=== PATIENT | male | born 1955 | race Caucasian/White ===

== ENCOUNTER → 2018-12-18 | Outpatient (CLI) | payer OTHER ==
--- NOTE | 2018-12-20 17:07 | PE ---
Nuclear medicine PET/CT HISTORY: Colorectal carcinoma subsequent Patient received 10.8 mCi F-18 intravenously in delayed scanning was performed from the skull base to the mid thighs. Localization and attenuation correction CT scan was performed. No comparisons Neck and chest: No suspicious hypermetabolic activity. There is no cervical, axillary, hilar, or medi astinal adenopathy. Coronary artery calcifications are present. There is no lung mass. Pleural or per icardial effusion. ABDOMEN: Spleen is enlarged. Large amount of retained fecal debris present within the colon. Retroper itoneal nodes are not enlarged. There is a calcification associated with the left kidney. There is a mass in the right hemipelvis measuring approximately 4.4 cm in AP dimension, some local colonic wall thickening is present. The left of the sigmoid colon there is an additional mass measuring approximat abimael 3 cm in size. Associated hypermetabolic uptake mass or adenopathy is evident. Prostatic calcifica tions are present. Low dense lesion within the left lobe liver shows no suspicious hypermetabolic upt kavon. Osseous structures show no suspicious hypermetabolic uptake. Facet arthropathy noted at the lower lum bar spine, there are degenerative disc changes. IMPRESSION: Soft tissue masses within the pelvis with associated hypermetabolic uptake, colonic wall thickening compatible with patient's history colorectal carcinoma. Splenomegaly. Coronary artery dise ase.
== END | disposition home or self-care (01) ==
LOC: RADPETMAIN 12:15
PROVIDERS: ATTEND Internal Medicine Hematology & Oncology
DX: C19 Malignant neoplasm of rectosigmoid junction (principal); I25.10 Atherosclerotic heart disease of native coronary artery without angina pectoris; R16.1 Splenomegaly, not elsewhere classified
CPT/HCPCS: 78815; A9552

== ENCOUNTER → 2019-03-24 | Outpatient (CLI) | payer OTHER ==
--- NOTE | 2019-03-24 15:41 | XR ---
EXAMINATION TYPE: XR knee complete bilateral DATE OF EXAM: 03/24/2019 CLINICAL HISTORY: Bilateral knee pain for 2 months. TECHNIQUE: Three views of the bilateral knees are obtained. COMPARISON: None. FINDINGS: There is no acute fracture/dislocation evident in either knee. There is defw-sx-aanvecwi m edial tibiofemoral compartment right knee more prominent on left knee with additional mild spurring r ight knee. Patellofemoral compartments bilaterally show mild to moderate narrowing and mild spurring fairly symmetric in appearance. Posterior vascular calcification left knee is noted. IMPRESSION: As above.
== END | disposition home or self-care (01) ==
LOC: RADXRMAIN 15:16
PROVIDERS: ATTEND Family Medicine
DX: M89.8X6 Other specified disorders of bone, lower leg (principal)

== ENCOUNTER → 2019-04-29 | Outpatient (CLI) | payer OTHER ==
--- NOTE | 2019-04-29 20:56 | MR ---
EXAMINATION TYPE: MR pelvis wo/w con DATE OF EXAM: 04/29/2019 COMPARISON: 12/18/2018 CT scan HISTORY: Malignant neoplasm of rectosigmoid junction CONTRAST: Standard multiplanar, multisequence MRI departmental protocol utilizing 7.5 mL intravenous Gadavist g adolinium contrast. FINDINGS: There is mixed signal irregular mass involving the right lateral wall of the rectum. This measures 2. 5 cm in diameter. There is slight enhancement of the wall of the mass. There is mild diffuse enhancem ent of the wall of the lower rectum. Bladder distends smoothly. There is no evidence of bladder mass. Sacral segments have normal alignment. There is no evidence of bony destructive process in the pelvi s. There is mild rectal wall thickening. There is no free fluid in the pelvis. Prostate is enlarged a nd measures 5.5 cm with multiple central areas of calcification bilaterally. IMPRESSION: 2.5 cm mass on the right lateral wall of the rectum consistent with residual tumor. This measures 4.[address] scan of 12/18/2018 and suggests a favorable treatment response. Diffuse wall thickening of the lower rectosigmoid colon in the pelvic floor consistent with edema and consistent with post radiation changes. Enlarged prostate with calcification unchanged.
== END | disposition home or self-care (01) ==
LOC: RADMRIMAIN 16:41
PROVIDERS: ATTEND Radiology Radiation Oncology
DX: C19 Malignant neoplasm of rectosigmoid junction (principal); Z92.3 Personal history of irradiation; Z87.891 Personal history of nicotine dependence
CPT/HCPCS: 72197; A9585

== ENCOUNTER → 2019-04-29 | Outpatient (CLI) | payer OTHER ==
--- NOTE | 2019-05-01 09:09 | CT ---
EXAMINATION TYPE: CT chest abdomen w con DATE OF EXAM: 04/29/2019 INDICATION: Rectosigmoid junction cancer. COMPARISON: Localization CT from the PET scan of 12/18/2018 CT DLP: 789.1 mGycm CONTRAST: Performed without Oral Contrast and with IV Contrast, patient injected with 100ml mL of Isovue 300. TECHNIQUE: Axial images at 5 mm thick sections. Reconstructed images in the coronal plane. Delayed images through the kidneys. FINDINGS: CT CHEST: Portion of the thyroid visualized is normal. No suspicious lung nodules or focal infiltrates are present. There appears to be some mild chronic st randing present. Some mild pleural thickening the right lower margin. Series 4 image 44. Couple of ar eas of pneumonitis change are present. These findings were present previously. No enlarged mediastinal or hilar adenopathy is evident. The ascending aorta diameter at the level of the main pulmonary artery is 3.0 cm. The main pulmonary artery diameter at the bifurcation is 2.[address] ABDOMEN: Liver: Normal Spleen: Upper limits of normal for size. Pancreas: Normal Adrenal glands: The adrenal glands are normal. Gallbladder: Normal Kidneys: No masses are evident. No hydronephrosis is present. No cysts are present. Delayed images were obtained through the kidneys, which remain unremarkable. Aorta: Vascular calcification is within the aorta. Inferior vena cava: Normal. Bowel: Study is without oral contrast limiting bowel evaluation. Fecal debris is within the descendin g colon. Osseous structures: No suspicious lytic or sclerotic lesions. Degenerative disc changes are in the lo wer lumbar spine IMPRESSIONS: 1. No suspicious changes to suggest metastatic disease.
== END | disposition home or self-care (01) ==
LOC: RADCTMAIN 16:32
PROVIDERS: ATTEND Radiology Radiation Oncology
DX: C19 Malignant neoplasm of rectosigmoid junction (principal); Z92.3 Personal history of irradiation; Z87.891 Personal history of nicotine dependence
CPT/HCPCS: 82565; 84520; 71260; 74160; 36415; Q9967

== ENCOUNTER → 2019-05-20 | Outpatient (CLI) | payer OTHER ==
--- NOTE | 2019-05-20 10:55 | XR ---
EXAMINATION TYPE: XR foot complete bilateral DATE OF EXAM: 05/20/2019 CLINICAL HISTORY: Bilateral metatarsalgia TECHNIQUE: Frontal, lateral, and oblique images of the bilateral feet are obtained. COMPARISON: None FINDINGS: There is no acute fracture/dislocation evident in either foot. Slight hallux valgus positi oning bilaterally, left slightly more prominent than right in the first metatarsal phalangeal joints Mild to moderate narrowing right foot first metatarsal phalangeal joint with mild spurring. Moderate to large size inferior calcaneal spurs bilaterally. Marked flexion in the toes is noted in both feet. Mild diffuse subcutaneous edema bilaterally. IMPRESSION: As above.
== END | disposition home or self-care (01) ==
LOC: RADXRMAIN 10:11
PROVIDERS: ATTEND Family Medicine
DX: M77.31 Calcaneal spur, right foot (principal); M77.32 Calcaneal spur, left foot; M20.12 Hallux valgus (acquired), left foot; M20.11 Hallux valgus (acquired), right foot; M21.272 Flexion deformity, left ankle and toes; M21.271 Flexion deformity, right ankle and toes; M25.871 Other specified joint disorders, right ankle and foot

== ENCOUNTER 2019-06-12 08:20 | Emergency (ER) | payer OTHER ==
[2019-06-12 08:42] VITALS: TEMP 99.3
--- NOTE | 2019-06-12 09:22 | ED ---
Male Urogenital HPI - General Chief complaint: Urogenital Stated complaint: uti Time Seen by Provider: 06/12/19 08:31 Source: patient, RN notes reviewed Mode of arrival: ambulatory Limitations: no limitations - History of Present Illness Initial comments: This is 63-year-old male presents emergency Department chief complaint of dysuria. Concern of the last 2 days. Patient does admit that he's had recent Griffith catheter. He states he had surgery on 05/22/2019 and which she had a colon resection, ileostomy. He did have an a Griffith placed at that time was removed couple days after in which she had urinary retention, replaced and removed 3 days ago. Patient states he has dysuria and hesitancy when urinating. He has been taken Flomax for last 1 week. He reports no fevers chills he has no increasing abdominal pain no flank pain. - Related Data Previous Rx's Medication Instructions Recorded Sulfamethox-Tmp 800-160Mg [Bactrim 1 each PO Q12HR #14 tab 06/12/19 Ds] Allergies Allergy/AdvReac Type Severity Reaction Status Date / Time Tetracyclines Allergy Unknown Verified 06/12/19 08:32 Childhood Review of Systems ROS Statement: Those systems with pertinent positive or pertinent negative responses have been documented in the HPI. ROS Other: All systems not noted in ROS Statement are negative. Past Medical History Additional Past Medical History / Comment(s): colon/rectal cancer History of Any Multi-Drug Resistant Organisms: None Reported Additional Past Surgical History / Comment(s): colon resection and ileostomy Past Psychological History: No Psychological Hx Reported Smoking Status: Never smoker Past Alcohol Use History: None Reported Past Drug Use History: None Reported General Exam Limitations: no limitations General appearance: alert, in no apparent distress Head exam: Present: atraumatic, normocephalic, normal inspection Eye exam: Present: normal appearance, PERRL, EOMI. Absent: scleral icterus, conjunctival injection, periorbital swelling Neck exam: Present: normal inspection, full ROM. Absent: tenderness, meningismus, lymphadenopathy Respiratory exam: Present: normal lung sounds bilaterally. Absent: respiratory distress, wheezes, rales, rhonchi, stridor Cardiovascular Exam: Present: regular rate, normal rhythm, normal heart sounds. Absent: systolic murmur, diastolic murmur, rubs, gallop, clicks GI/Abdominal exam: Present: soft, tenderness (Minimal), normal bowel sounds, other (Incision sites healing well no drainage or erythema). Absent: distended, guarding, rebound, rigid Course Vital Signs 06/12/19 08:32 Temperature 99.3 F Pulse Rate 87 Respiratory 18 Rate Blood Pressure 117/69 O2 Sat by Pulse 96 Oximetry Medical Decision Making - Medical Decision Making Urinalysis reviewed shows evidence of urinary tract infection. Patient given Rocephin emergency department we discharged on Bactrim. Patient bladder scan di d not reveal any retention. - Lab Data Lab Results 06/12/19 Range/Units 09:51 Urine Color Dark Brown Urine Appearance Turbid (Clear) Urine pH 5.5 (5.0-8.0) Urine Protein 3+ H (Negative) Urine Glucose (UA) Trace H (Negative) Urine Ketones Negative (Negative) Urine Blood Moderate H (Negative) Urine Nitrite Positive (Negative) Urine Bilirubin 1+ H (Negative) Urine Urobilinogen <2.0 (<2.0) mg/dL Ur Leukocyte Esterase Large H (Negative) Urine RBC 65 H (0-5) /hpf Ur Squamous Epith Cells 8 H (0-4) /hpf Urine Bacteria Few H (None) /hpf Hyaline Casts 71 H (0-2) /lpf Urine Mucus Many H (None) /hpf Disposition Clinical Impression: Urinary tract infection Disposition: HOME SELF-CARE Condition: Stable Instructions (If sedation given, give patient instructions): Urinary Tract Infection in Men (ED) Additional Instructions: Please return to the Emergency Department if symptoms worsen or any other concerns. Prescriptions: Sulfamethox-Tmp 800-160Mg [Bactrim Ds] 1 each PO Q12HR #14 tab Is patient prescribed a controlled substance at d/c from ED?: No Referrals: Adiel Razo Jr, [Primary Care Provider] - 1-2 days Time of Disposition: 10:22
[2019-06-12 10:14] LABS: Appearance,Urine Turbid (Clear); Bacteria,Urine Few /hpf; Bilirubin,Urine 1+ (Negative); Blood,Urine Moderate (Negative); Color,Urine Dark Brown; Glucose,Urine (UA) Trace (Negative); Hyaline Casts,Urine 71 /lpf (0-2); Ketones,Urine Negative (Negative); Leukocyte Esterase,Urine Large (Negative); Mucus,Urine Many /hpf; Nitrite,Urine Positive (Negative); PH, Urine 5.5 (5.0-8.0); Protein,Urine 3+ (Negative); RBC,Urine 65 /hpf (0-5); Squamous Epithelial Cell,Urine 8 /hpf (0-4); Urobilinogen,Urine <2.0 mg/dL (<2.0)
[2019-06-12] MEDS ORDERED: cefTRIAXone 1,000 MG VIAL (IM USE) IM STA (10:15)
[2019-06-12 10:19] LABS: Specific Gravity,Urine 1.027 (1.001-1.035)
[2019-06-12 11:10] VITALS: BP 118/74; PULSE 70; RESP 16
== END 2019-06-12 11:10 | disposition home or self-care (01) ==
LOC: EC 08:20
DX: N39.0 Urinary tract infection, site not specified (principal); Z88.1 Allergy status to other antibiotic agents; Z90.49 Acquired absence of other specified parts of digestive tract; Z85.038 Personal history of other malignant neoplasm of large intestine
CPT/HCPCS: 81001; 87086; 96372; 99283; J0696; 87077; 87186

== ENCOUNTER → 2019-07-04 | Outpatient (CLI) | payer OTHER ==
--- NOTE | 2019-07-04 16:20 | US ---
EXAMINATION TYPE: US kidneys/renal and bladder DATE OF EXAM: 07/04/2019 COMPARISON: CT chest and abdomen April 29, 2019 CLINICAL HISTORY: N13.39 Other hydronephrosis. EXAM MEASUREMENTS: Right Kidney: 11.5 x 4.8 x 5.2 cm Left Kidney: 12.7 x 5.3 x 4.9 cm Right Kidney: No hydronephrosis or masses seen Left Kidney: echogenic foci, probable stone measuring Bladder: wnl There is no evidence for hydronephrosis at this point in time. Corresponding to CT there is a 6 mm hy perechoic focus midpole level consistent with nonobstructing calculus. No masses are identified on i mages saved. The urinary bladder is satisfactorily distended. Bilateral ureteral jets are seen. Inc idental scanning liver there is a heterogeneous hyperechoic appearance which correlates with CT could reflect product of diffuse fatty infiltration and/or underlying hepatocellular disease. Correlate cl inically. IMPRESSION: Redemonstration of nonobstructing calculus more accurately measuring [address] No hydro nephrosis is seen bilaterally.
== END | disposition home or self-care (01) ==
LOC: RADUSWWP 15:43
PROVIDERS: ATTEND Surgery
DX: N20.0 Calculus of kidney (principal)
CPT/HCPCS: 76770

== ENCOUNTER 2019-08-13 21:45 | Emergency (ER) | payer OTHER ==
--- NOTE | 2019-08-13 22:43 | ED ---
Male Urogenital HPI - General Chief complaint: Urogenital Stated complaint: Urogenital Time Seen by Provider: 08/13/19 21:58 Source: patient Mode of arrival: ambulatory Limitations: no limitations - History of Present Illness Initial comments: Patient is 63-year-old male presenting to emergency Department with complaints of dysuria that started today. Patient states he has a history of UTIs for the past couple months. Patient had recent surgery to remove colon cancer. He currently has an ileostomy bag. Patient states his last round of antibiotics he ended approximately one week ago and he was on Bactrim. He started noticing dysuria, frequency and urgency that started this morning. He denies any fever, chills, nausea, vomiting, abdominal pain. He has no other complaints at this time. Upon arrival to ER, vital signs are stable. - Related Data Previous Rx's Medication Instructions Recorded Sulfamethox-Tmp 800-160Mg [Bactrim 1 each PO Q12HR #14 tab 06/12/19 Ds] Ciprofloxacin HCl [Cipro] 500 mg PO BID 7 Days #14 tab 08/13/19 Allergies Allergy/AdvReac Type Severity Reaction Status Date / Time Tetracyclines Allergy Unknown Verified 08/13/19 21:50 Childhood Review of Systems ROS Statement: Those systems with pertinent positive or pertinent negative responses have been documented in the HPI. ROS Other: All systems not noted in ROS Statement are negative. Past Medical History Additional Past Medical History / Comment(s): colon/rectal cancer History of Any Multi-Drug Resistant Organisms: None Reported Additional Past Surgical History / Comment(s): colon resection and ileostomy Past Psychological History: No Psychological Hx Reported Smoking Status: Never smoker Past Alcohol Use History: None Reported Past Drug Use History: None Reported General Exam - General Exam Comments Initial Comments: GENERAL: Well-appearing, well-nourished and in no acute distress. HEAD: Atraumatic, normocephalic. EYES: Pupils equal round and reactive to light, extraocular movements intact, sclera anicteric, conjunctiva are normal. ENT: TMs normal, nares patent, oropharynx clear without exudates. Moist mucous membranes. NECK: Normal range of motion, supple without lymphadenopathy or JVD. LUNGS: Breath sounds clear to auscultation bilaterally and equal. No wheezes rales or rhonchi. HEART: Regular rate and rhythm without murmurs, rubs or gallops. ABDOMEN: Soft, nontender, normoactive bowel sounds. No guarding, no rebound. No masses appreciated. Ileostomy bag present : Deferred EXTREMITIES: Normal range of motion, no pitting or edema. No clubbing or cyanosis. NEUROLOGICAL: Normal speech, normal gait. PSYCH: Normal mood, normal affect. SKIN: Warm, Dry, normal turgor, no rashes or lesions noted. Limitations: no limitations Course Vital Signs 08/13/19 08/13/19 08/13/19 21:47 23:18 23:27 Temperature 98.7 F 100.2 F H 100 F H Pulse Rate 86 80 Respiratory 16 18 Rate Blood Pressure 129/85 126/74 O2 Sat by Pulse 97 100 Oximetry Medical Decision Making - Medical Decision Making Patient is a 61-year-old male presenting with dysuria for one day. He's had a history of UTIs, 2 in the past 2 months. He was recently treated with Bactrim. UA shows 4+ glucose, WBC clumps and high amount of bacteria. Urine will be cultured and is pending at this time. Upon discussion of the urine, patient noted that he is currently receiving chemo. I recommended checking a CBC however patient refused at this time, he does not want blood work. [facility] and urged to follow up with his PCP on Thursday. Patient is in agreement with this plan of care. Strict return parameters were discussed with the patient and he verbalized understanding. Case discussed with Dr. Herbert. - Lab Data Lab Results 08/13/19 Range/Units 22:06 Urine Color Yellow Urine Appearance Cloudy (Clear) Urine pH 5.5 (5.0-8.0) Ur Specific [place] 1.029 (1.001-1.035) Urine Protein 1+ H (Negative) Urine Glucose (UA) 4+ H (Negative) Urine Ketones 1+ H (Negative) Urine Blood Moderate H (Negative) Urine Nitrite Negative (Negative) Urine Bilirubin Negative (Negative) Urine Urobilinogen <2.0 (<2.0) mg/dL Ur Leukocyte Esterase Large H (Negative) Urine RBC 13 H (0-5) /hpf Urine WBC >182 H (0-5) /hpf Urine WBC Clumps Few H (None) /hpf Urine Bacteria Moderate H (None) /hpf Urine Mucus Few H (None) /hpf Disposition Clinical Impression: UTI (urinary tract infection) Disposition: HOME SELF-CARE Condition: Stable Instructions (If sedation given, give patient instructions): Urinary Tract Infection in Men (ED) Additional Instructions: Please return to the Emergency Department if symptoms worsen or any other concerns. Follow-up with PCP on Thursday as discussed. Prescriptions: Ciprofloxacin HCl [Cipro] 500 mg PO BID 7 Days #14 tab Is patient prescribed a controlled substance at d/c from ED?: No Referrals: Adiel Razo Jr, DO [Primary Care Provider] - 1-2 days
[2019-08-13 22:55] LABS: Appearance,Urine Cloudy (Clear); Bacteria,Urine Moderate /hpf; Bilirubin,Urine Negative (Negative); Blood,Urine Moderate (Negative); Color,Urine Yellow; Glucose,Urine (UA) 4+ (Negative); Ketones,Urine 1+ (Negative); Leukocyte Esterase,Urine Large (Negative); Mucus,Urine Few /hpf; Nitrite,Urine Negative (Negative); PH, Urine 5.5 (5.0-8.0); Protein,Urine 1+ (Negative); RBC,Urine 13 /hpf (0-5); Specific Gravity,Urine 1.029 (1.001-1.035); Urobilinogen,Urine <2.0 mg/dL (<2.0); WBC,Urine >182 /hpf (0-5)
[2019-08-13] MEDS ORDERED: CIPROFLOXACIN HCL 500 MG TAB PO STA (23:18)
[2019-08-13 23:29] VITALS: BP 126/74; PULSE 80; RESP 18; TEMP 100
== END 2019-08-13 23:54 | disposition home or self-care (01) ==
LOC: EC 21:45
DX: N39.0 Urinary tract infection, site not specified (principal); Z88.1 Allergy status to other antibiotic agents; Z93.2 Ileostomy status; Z85.038 Personal history of other malignant neoplasm of large intestine
CPT/HCPCS: 81001; 87077; 87086; 87186; 99283

== ENCOUNTER → 2019-12-27 | Outpatient (CLI) | payer OTHER ==
[2019-12-27 12:24] LABS: African American GFR (CKD) >90 (>60 ml/min/1.73 sqM); Blood Urea Nitrogen 19 mg/dL (9-20); Non-African American GFR(CKD) >90 (>60 ml/min/1.73 sqM)
--- NOTE | 2019-12-27 13:33 | CT ---
EXAMINATION TYPE: CT abdomen pelvis w con DATE OF EXAM: 12/27/2019 COMPARISON: HISTORY: Follow up colon cancer CT DLP: 784.9 mGycm Automated exposure control for dose reduction was used. TECHNIQUE: Helical acquisition of images was performed from the lung bases through the pelvis. CONTRAST: Performed with Oral Contrast and with IV Contrast, patient injected with 100 mL of Isovue 300. FINDINGS: LUNG BASES: Multifocal pleural parenchymal scarring and scattered areas of subsegmental atelectasis. Left hemidiaphragm elevation noted.14 LIVER/GB: There are 2 hepatic lesions that are subcentimeter and too small to accurately characterize retrospectively unchanged from the prior of 04/29/2019. The liver is diffusely hypoattenuated althoug h does not yet meet criteria for hepatic steatosis. Mild dilatation of the main portal vein. Punctate calculus in the gallbladder fundus. PANCREAS: No significant abnormality is seen. SPLEEN: Splenomegaly is seen as the elongated spleen measures 17.0 cm in longitudinal dimension. Suzan splenic and gastrohepatic varices are seen. Main portal vein is mildly dilated measuring 1.7 cm. Mese nteric varices also seen. ADRENALS: No new nodularity or thickening. KIDNEYS: Nonobstructing left renal calculus measures 6 mm. No hydronephrosis of either kidney. Kidney s enhance symmetrically. FREE AIR: No free air is visualized. ADENOPATHY: No greater than 1 cm short axis lymph nodes in the abdomen or pelvis. Shotty nonenlarged periaortic lymph nodes. OSSEOUS STRUCTURES: Sclerotic focus of the anterior cortex of L5 is similar to the prior of 9 and therefore possibly bone island. Mild multilevel degenerative change of the spine. BOWEL: Rectosigmoid anastomotic site demonstrates no proximal bowel dilatation nor anastomotic stric ture. Overall no dilated large or small bowel. Ileostomy seen that appears patent with contrast into the ostomy pouch. Small amount of mesenteric fat is seen within the ostomy. No bowel containing lor tomal hernia. OTHER: Presacral edema/soft tissue thickening measures up to 2.1 cm and was not imaged on the prior o f 04/29/2019. On the PET/CT of 12/18/2018 this was not present. Incomplete distention of the urinary bladder. Diffusely heterogenous prostate gland. IMPRESSION: 1. New presacral edema and/or soft tissue thickening that could relate to posttreatment change. This is seen directly posterior to the rectosigmoid anastomotic site measuring up to 2.1 cm in greatest th ickness. 2. Findings of portal venous hypertension with mildly dilated main portal vein, gastric hepatic varic es, mesenteric varices and splenic varices. 3. Stable too small to accurately characterize subcentimeter hepatic lesions (2 in number).
== END | disposition home or self-care (01) ==
LOC: RADCTMAIN 10:53
PROVIDERS: ATTEND Internal Medicine Hematology & Oncology
DX: K76.6 Portal hypertension (principal); I86.8 Varicose veins of other specified sites; K76.9 Liver disease, unspecified; Z88.1 Allergy status to other antibiotic agents
CPT/HCPCS: 82565; 84520; 74177; 36415; Q9967

== ENCOUNTER → 2020-03-29 | Outpatient (CLI) | payer OTHER ==
--- NOTE | 2020-03-30 07:23 | MR ---
EXAMINATION TYPE: MR knee RT wo con DATE OF EXAM: 03/29/2020 COMPARISON: Outside right knee x-ray February 28, 2020. HISTORY: Right Knee Pain per order. Inner pain for years per patient. Recent twisting injury. TECHNIQUE: Multiplanar, multisequence images of the knee is performed without IV contrast. FINDINGS: MEDIAL MENISCUS: Anterior horn is intact without tear. Posterior horn is truncated with abnormal incr eased signal, fraying along the peripheral margins is present. Findings consistent with full thicknes s tear. LATERAL MENISCUS: Anterior and posterior horns are intact without tear. CRUCIATE LIGAMENTS: The posterior cruciate ligament is intact and unremarkable. Anterior cruciate lig ament visualized consistent with full-thickness tear. COLLATERAL LIGAMENTS: The medial collateral ligament and lateral collateral ligament complex are inta ct. Medial bowing medial collateral ligament noted. No suspicious surrounding signal. EXTENSOR MECHANISM: Visualized quadriceps and patellar tendons are intact. EFFUSION: Moderate to large size suprapatellar joint effusion. POPLITEAL CYST: No popliteal/miner cyst. TRICOMPARTMENT SPACES: Mild narrowing and spurring medial and lateral tibiofemoral compartments. Mild to moderate narrowing patellofemoral compartment. CARTILAGE: Some chondromalacia patella is present with thinning of articular cartilage along superior aspect of the posterior patellar pole. BONE MARROW SIGNAL: No focal abnormal marrow signal is appreciated. OTHER: No additional significant abnormality is appreciated. IMPRESSION: 1. Complete ACL tear. Finding presumed chronic without abnormal osseous edema or recent trauma. 2. Full-thickness tear posterior horn of the medial meniscus. 3. Moderate to large suprapatellar joint effusion. 4. Mild to moderate tricompartment degenerative changes as detailed above.
== END | disposition home or self-care (01) ==
LOC: RADMRIMAIN 15:35
PROVIDERS: ATTEND Orthopaedic Surgery
DX: S83.241A Other tear of medial meniscus, current injury, right knee, initial encounter (principal); S83.511A Sprain of anterior cruciate ligament of right knee, initial encounter; M17.11 Unilateral primary osteoarthritis, right knee

== ENCOUNTER 2020-05-19 21:15 | Emergency (ER) | payer OTHER ==
[2020-05-19] MEDS ORDERED: valACYclovir HCL 1,000 MG TABLET PO STA (22:07)
--- NOTE | 2020-05-19 22:07 | ED ---
Skin/Abscess/FB HPI - General Chief complaint: Skin/Abscess/Foreign Body Stated complaint: rash Time Seen by Provider: 05/19/20 21:25 Source: patient Mode of arrival: ambulatory Limitations: no limitations - History of Present Illness Initial comments: Patient is a 64-year-old male presenting to the emergency Department with complaints of a rash that he noticed yesterday. Patient describes the rash as very painful, uncomfortable and burning. He states he noticed it start on the left side of his upper butt cheek and extends down the left side and wraps underneath and is also having some red spots on the left side of his scrotum, groin area. He states he has had chickenpox as a child. He denies having shingles in the past. He denies any fever, chills. He denies any sores her injuries to this area. He has no further complaints at this time. - Related Data Previous Rx's Medication Instructions Recorded Sulfamethox-Tmp 800-160Mg [Bactrim 1 each PO Q12HR #14 tab 06/12/19 Ds] Ciprofloxacin HCl [Cipro] 500 mg PO BID 7 Days #14 tab 08/13/19 Cephalexin [Keflex] 500 mg PO BID 5 Days #10 cap 05/19/20 valACYclovir HCL [Valtrex] 1,000 mg PO Q8HR 7 Days #21 tab 05/19/20 Allergies Allergy/AdvReac Type Severity Reaction Status Date / Time Tetracyclines Allergy Unknown Verified 05/19/20 21:24 Childhood Review of Systems ROS Statement: Those systems with pertinent positive or pertinent negative responses have been documented in the HPI. ROS Other: All systems not noted in ROS Statement are negative. Past Medical History Additional Past Medical History / Comment(s): colon/rectal cancer History of Any Multi-Drug Resistant Organisms: None Reported Additional Past Surgical History / Comment(s): colon resection and ileostomy Past Psychological History: No Psychological Hx Reported Smoking Status: Never smoker Past Alcohol Use History: None Reported Past Drug Use History: None Reported General Exam - General Exam Comments Initial Comments: GENERAL: Patient is well-developed and well-nourished. Patient is nontoxic and in no acute distress. HEAD: Atraumatic, normocephalic. EYES: Pupils equal round and reactive to light, extraocular movements intact, sclera anicteric, conjunctiva are normal. Eyelids were unremarkable. ENT: TMs normal, nares patent, oropharynx clear without exudates. Moist mucous membranes. NECK: Normal range of motion, supple without lymphadenopathy or JVD. LUNGS: Unlabored respirations. Breath sounds clear to auscultation bilaterally and equal. No wheezes rales or rhonchi. HEART: Regular rate and rhythm without murmurs, rubs or gallops. ABDOMEN: Soft, nontender, normoactive bowel sounds. No guarding, no rebound. No masses appreciated. : Deferred MUSCULOSKELETAL: Normal extremities with adequate strength and normal range of motion, no pitting or edema. No clubbing or cyanosis. NEUROLOGICAL: Patient is alert and oriented x 3. Motor and sensory are also intact. Normal speech, normal gait. PSYCH: Normal mood, normal affect. SKIN: Warm, Dry, normal turgor. Patient has an erythematous blister-type rash extending from the left upper glut trending down which wraps around to the left scrotum, following the S2 dermatome on the left side, this rash is consistent with shingles virus. Limitations: no limitations Course Vital Signs 05/19/20 21:21 Temperature 99.0 F Pulse Rate 89 Respiratory 20 Rate Blood Pressure 157/83 O2 Sat by Pulse 99 Oximetry Medical Decision Making - Medical Decision Making Patient is a 64-year-old male presenting with what looks clinically as shingles of the S2 dermatome on the left side that mostly started yesterday. I did offer patient pain control however he refused at this time. I will start patient on Valtrex. He can follow up with his PCP for the shingles vaccine. He is in agreement with this plan of care. He is stable for discharge. Return parameters were discussed with the patient he verbalizes understanding. Case discussed with Dr. Lopez. Disposition Clinical Impression: Shingles rash Disposition: HOME SELF-CARE Condition: Stable Instructions (If sedation given, give patient instructions): Shingles (ED) Additional Instructions: Please return to the Emergency Department if symptoms worsen or any other concerns. Your rash is consistent with shingles virus. Recommended taking medication as prescribed. Follow-up with PCP regarding shingles vaccine. Prescriptions: Cephalexin [Keflex] 500 mg PO BID 5 Days #10 cap valACYclovir HCL [Valtrex] 1,000 mg PO Q8HR 7 Days #21 tab Is patient prescribed a controlled substance at d/c from ED?: No Referrals: Adiel Razo Jr, [Primary Care Provider] - 1-2 days
[2020-05-19 22:57] VITALS: BP 139/82; PULSE 86; RESP 18; TEMP 98.6
== END 2020-05-19 22:53 | disposition home or self-care (01) ==
LOC: EC 21:15
DX: B02.9 Zoster without complications (principal); Z88.1 Allergy status to other antibiotic agents; Z85.038 Personal history of other malignant neoplasm of large intestine
CPT/HCPCS: 99282

== ENCOUNTER 2020-10-06 23:35 | Emergency (ER) | payer OTHER ==
[2020-10-06 23:41] VITALS: PULSE 71
--- NOTE | 2020-10-07 00:03 | ED ---
Male Urogenital HPI - General Chief complaint: Urogenital Stated complaint: Urogenital Time Seen by Provider: 10/07/20 00:02 Source: patient, RN notes reviewed, old records reviewed Mode of arrival: ambulatory Limitations: no limitations - History of Present Illness Initial comments: This is a 64-year-old male DF for evaluation patient Dese for evaluation of severe dysuria. Patient had cystoscopy scope for evaluation of headache symptoms are related to recent hospitalization. Patient states he's had severe burning with severe pain with urination throughout the day and is currently making the night. Patient denying any fevers or abdominal pain. MD Complaint: dysuria -: hour(s) Location: penis Severity: moderate Severity scale (1-10): 7 Quality: burning Consistency: constant Improves with: none Worsens with: urination recent surgery Reports: dysuria - Related Data Previous Rx's Medication Instructions Recorded Sulfamethox-Tmp 800-160Mg [Bactrim 1 each PO Q12HR #14 tab 06/12/19 Ds] Ciprofloxacin HCl [Cipro] 500 mg PO BID 7 Days #14 tab 08/13/19 Cephalexin [Keflex] 500 mg PO BID 5 Days #10 cap 05/19/20 valACYclovir HCL [Valtrex] 1,000 mg PO Q8HR 7 Days #21 tab 05/19/20 Allergies Allergy/AdvReac Type Severity Reaction Status Date / Time Tetracyclines Allergy Unknown Verified 10/06/20 23:37 Childhood Review of Systems ROS Statement: Those systems with pertinent positive or pertinent negative responses have been documented in the HPI. ROS Other: All systems not noted in ROS Statement are negative. Past Medical History Past Medical History: Cancer, Prostate Disorder Additional Past Medical History / Comment(s): colon/rectal cancer , TB 30 years ago, Chemo History of Any Multi-Drug Resistant Organisms: None Reported Past Surgical History: Bowel Resection Additional Past Surgical History / Comment(s): colon resection and ileostomy Past Psychological History: No Psychological Hx Reported Smoking Status: Never smoker Past Alcohol Use History: None Reported Past Drug Use History: None Reported General Exam Limitations: no limitations General appearance: alert, in no apparent distress Head exam: Present: atraumatic, normocephalic, normal inspection Eye exam: Present: normal appearance, PERRL, EOMI. Absent: scleral icterus, conjunctival injection, periorbital swelling ENT exam: Present: normal exam, mucous membranes moist Neck exam: Present: normal inspection. Absent: tenderness, meningismus, lymphadenopathy Respiratory exam: Present: normal lung sounds bilaterally. Absent: respiratory distress, wheezes, rales, rhonchi, stridor Cardiovascular Exam: Present: regular rate, normal rhythm, normal heart sounds. Absent: systolic murmur, diastolic murmur, rubs, gallop, clicks GI/Abdominal exam: Present: soft, normal bowel sounds. Absent: distended, tenderness, guarding, rebound, rigid Extremities exam: Present: normal inspection, full ROM, normal capillary refill. Absent: tenderness, pedal edema, joint swelling, calf tenderness Back exam: Present: normal inspection Neurological exam: Present: alert, oriented X3, CN II-XII intact Psychiatric exam: Present: normal affect, normal mood Skin exam: Present: warm, dry, intact, normal color. Absent: rash Course Vital Signs 10/06/20 10/07/20 23:37 00:29 Temperature 98.4 F Pulse Rate 71 Respiratory 16 16 Rate Blood Pressure 154/90 O2 Sat by Pulse 96 Oximetry - Reevaluation(s) Reevaluation #1: 10/07/20 02:25 Medical record is reviewed Reevaluation #2: 10/07/20 02:25 Patient symptoms are improved here in the ER Reevaluation #3: 10/07/20 02:25 Patient informed results and can be discharged home Medical Decision Making - Medical Decision Making 61 female DF for evaluation patient has iatrogenic urinary tract infection. Patient be placed on antibiotics can be discharged home - Lab Data Lab Results 10/07/20 Range/Units 00:28 Urine Color Yellow Urine Appearance Cloudy (Clear) Urine pH 5.5 (5.0-8.0) Ur Specific [place] 1.027 (1.001-1.035) Urine Protein Trace H (Negative) Urine Glucose (UA) 4+ H (Negative) Urine Ketones Negative (Negative) Urine Blood Negative (Negative) Urine Nitrite Negative (Negative) Urine Bilirubin Negative (Negative) Urine Urobilinogen <2.0 (<2.0) mg/dL Ur Leukocyte Esterase Moderate H (Negative) Urine RBC 2 (0-5) /hpf Urine WBC 91 H (0-5) /hpf Urine Bacteria Rare H (None) /hpf Urine Mucus Few H (None) /hpf Disposition Clinical Impression: Urinary tract infection Disposition: HOME SELF-CARE Condition: Good Instructions (If sedation given, give patient instructions): Urinary Tract Infection in Men (ED) Is patient prescribed a controlled substance at d/c from ED?: No Referrals: Adiel Razo Jr, DO [Primary Care Provider] - 1-2 days
[2020-10-07 01:35] LABS: Appearance,Urine Cloudy (Clear); Bacteria,Urine Rare /hpf; Bilirubin,Urine Negative (Negative); Blood,Urine Negative (Negative); Color,Urine Yellow; Glucose,Urine (UA) 4+ (Negative); Ketones,Urine Negative (Negative); Leukocyte Esterase,Urine Moderate (Negative); Mucus,Urine Few /hpf; Nitrite,Urine Negative (Negative); PH, Urine 5.5 (5.0-8.0); Protein,Urine Trace (Negative); RBC,Urine 2 /hpf (0-5); Specific Gravity,Urine 1.027 (1.001-1.035); Urobilinogen,Urine <2.0 mg/dL (<2.0); WBC,Urine 91 /hpf (0-5)
[2020-10-07] MEDS ORDERED: AMOXIC-POT CLAV 875MG STARTER PACK 2 TAB BTL PO STA (02:23)
[2020-10-07] MEDS ORDERED: AMOXIC-POT CLAV 875-125MG 1 EACH TAB PO STA (02:23)
[2020-10-07] MEDS ORDERED: PHENAZOPYRIDINE 200 MG TAB PO ONE (02:30)
[2020-10-07 02:38] VITALS: BP 116/81; RESP 20; TEMP 98.1
== END 2020-10-07 02:55 | disposition home or self-care (01) ==
LOC: EC 23:35
DX: N39.0 Urinary tract infection, site not specified (principal); Z85.038 Personal history of other malignant neoplasm of large intestine
CPT/HCPCS: 81001; 87077; 87086; 87186; 99283

== ENCOUNTER → 2020-12-03 | Outpatient (CLI) | payer OTHER ==
[2020-12-03 09:43] LABS: African American GFR (CKD) >90 (>60 ml/min/1.73 sqM); Blood Urea Nitrogen 29 mg/dL (9-20); Non-African American GFR(CKD) 85 (>60 ml/min/1.73 sqM)
--- NOTE | 2020-12-03 12:44 | CT ---
EXAMINATION TYPE: CT abdomen pelvis w con DATE OF EXAM: 12/03/2020 COMPARISON: CT abdomen and pelvis December 27, 2019 and older studies. PET/CT December 18, 2018. HISTORY: follow up to rectosigmoid CA CT DLP: 849.6 mGycm, Automated Exposure Control for Dose Reduction was Utilized. CONTRAST: CT scan of the abdomen and pelvis is performed with oral and with IV Contrast, patient injected with 100 mL of Isovue 300. FINDINGS: LUNG BASES: Mild to moderate posterior bibasilar linear scarring and/or atelectasis. Stable elevated left hemidiaphragm. LIVER/GB: Subcentimeter hypodense lesions in liver are less well seen on current study. No new or en larging hypodense lesions. PANCREAS: No significant abnormality is seen. SPLEEN: Persistent splenomegaly at 17.4 cm long axis axial image 13. ADRENALS: No significant abnormality is seen. KIDNEYS: Stable nonobstructing 4 to 5 mm left renal calculus coronal image 60. No hydronephrosis or o bstructing renal calculi bilaterally. Improved distention of bladder with mild right-sided wall thick ening remaining present. BOWEL: Oral contrast reaches level of the terminal ileum making evaluation of distal bowel slightly s uboptimal. No suspicious small or large bowel dilatation. Surgical sutures from prior resection sigmo id rectal colon coronal image 77 redemonstrated. Persistent abnormal soft tissue in the presacral spa ce axial images 64 through 75. No increased thickening at these levels. No new bony destruction. No a djacent new adenopathy clearly seen. Findings favor posttreatment change. PROSTATE/SEMINAL VESICLES: Central calcifications in the nonenlarged prostate gland. LYMPH NODES: No new greater than 1cm abdominal or pelvic lymph nodes are appreciated. OSSEOUS STRUCTURES: Stable moderate disc space narrowing and vacuum disc phenomenon L4-L5 level. Stab le nonspecific sclerotic focus L5 vertebral coronal image 56 favored benign. [id number] axial j oint space loss and spurring of both hips. OTHER: No significant additional abnormality is seen. IMPRESSION: Stable postsurgical and posttreatment changes, no new or enlarging mass or adenopathy bj ntified to suggest neoplastic recurrence.
== END | disposition home or self-care (01) ==
LOC: RADCTMAIN 08:53
PROVIDERS: ATTEND Internal Medicine Hematology & Oncology
DX: C19 Malignant neoplasm of rectosigmoid junction (principal)
CPT/HCPCS: 82565; 84520; 74177; 36415; Q9967

== ENCOUNTER → 2020-12-07 | Outpatient (CLI) | payer OTHER ==
--- NOTE | 2020-12-07 11:21 | XR ---
EXAMINATION TYPE: XR hand complete LT DATE OF EXAM: 12/07/2020 CLINICAL HISTORY: Pain and lump TECHNIQUE: Frontal, lateral and oblique images of the left hand are obtained. COMPARISON: None. FINDINGS: There is no acute fracture/dislocation evident in the left hand. Slight ulnar variance. Mi ld to moderate narrowing throughout the phalanges including MCP joints. Mild multilevel spurring. Ove rlying soft tissue appears unremarkable. No bony destruction. IMPRESSION: As above.
--- NOTE | 2020-12-07 11:22 | XR ---
EXAMINATION TYPE: XR Hip Complete RT DATE OF EXAM: 12/07/2020 CLINICAL HISTORY: Pain after fall injury. TECHNIQUE: AP and frogleg views of the right hip are obtained. COMPARISON: None. FINDINGS: There is no acute fracture/dislocation evident in the right hip. Mild axial joint space lo ss with mild to moderate acetabular spurring. The overlying soft tissue appears unremarkable. IMPRESSION: There is no acute fracture or dislocation in the right hip.
== END | disposition home or self-care (01) ==
LOC: RADXRMAIN 10:35
PROVIDERS: ATTEND Internal Medicine Hematology & Oncology
DX: M19.042 Primary osteoarthritis, left hand (principal); M77.8 Other enthesopathies, not elsewhere classified; M25.551 Pain in right hip
CPT/HCPCS: 73502

== ENCOUNTER 2021-06-11 13:50 | Emergency (ER) | payer OTHER ==
--- NOTE | 2021-06-11 16:34 | XR ---
EXAMINATION TYPE: XR KUB DATE OF EXAM: 06/11/2021 Comparison: None Clinical History: 65-year-old male right lower quadrant pain, flank, abdominal pain Findings: Lung bases are clear. No evidence for free intraperitoneal air. Some scattered colonic air-fluid levels especially in the right hemicolon. Mild stool. Possible 3 mm left renal calculus. No dilated small bowel or differential air-fluid levels. Central prosthetic calc ifications. Mild degenerative change of the hips. Impression: A few air-fluid levels in the right hemicolon suggesting liquid stool that could relate to an ileus o r enteritis. No evidence for free air or bowel obstruction.
[2021-06-11 17:19] LABS: ALT 27 U/L (4-49); AST 30 U/L (17-59); African American GFR (CKD) >90 (>60 ml/min/1.73 sqM); Albumin 4.4 g/dL (3.5-5.0); Alkaline Phosphatase 63 U/L (38-126); Anion Gap 7 mmol/L; Blood Urea Nitrogen 20 mg/dL (9-20); Calcium 9.3 mg/dL (8.4-10.2); Carbon Dioxide 25 mmol/L (22-30); Chloride 104 mmol/L (98-107); Glucose 155 mg/dL (74-99); Magnesium 2.1 mg/dL (1.6-2.3); Non-African American GFR(CKD) >90 (>60 ml/min/1.73 sqM); Potassium 4.3 mmol/L (3.5-5.1); Sodium 136 mmol/L (137-145); Total Bilirubin 0.9 mg/dL (0.2-1.3); Total Protein 6.9 g/dL (6.3-8.2)
--- NOTE | 2021-06-11 17:24 | ED ---
Abdominal Pain HPI - General Chief Complaint: Abdominal Pain Stated Complaint: RUQ Pain Time Seen by Provider: 06/11/21 16:30 Source: patient, RN notes reviewed, old records reviewed Mode of arrival: ambulatory Limitations: no limitations - History of Present Illness Initial Comments: Patient is a 65-year-old male with history of colon cancer, currently in remission, presenting to the emergency Department with complaints of some right sided abdominal pain that started about 12:00 today. He states it was very sharp, intermittent. States upon arrival to the ER, his pain has seemed to go away. He does have history of kidney stones however he states it was not that intense. He denies any abdominal pain right now, no nausea or vomiting, no fevers or chills. He states his bowel movements have been regular for him, no dysuria, no hematuria. He has had history of colon resection, no other abdominal surgeries. Patient denies any rashes to the skin. He has had shingles in the past, this feels different. Patient states he also been having intermittent numbness to the fingertips bilaterally, he states isn't going on for months. He is not sure if this is coming from his neck or something else. He denies any history of electrolyte imbalances He has no further complaints. His vital signs are stable upon arrival. - Related Data Home Medications Medication Instructions Recorded Confirmed Ciprofloxacin HCl 500 mg PO BID 06/11/21 06/11/21 Insulin Glargine,Hum.rec.anlog 25 unit SQ HS 06/11/21 06/11/21 [Lantus Solostar Pen] Allergies Allergy/AdvReac Type Severity Reaction Status Date / Time Tetracyclines Allergy Unknown Verified 10/06/20 23:37 Childhood Review of Systems ROS Statement: Those systems with pertinent positive or pertinent negative responses have been documented in the HPI. ROS Other: All systems not noted in ROS Statement are negative. Past Medical History Past Medical History: Cancer, Prostate Disorder Additional Past Medical History / Comment(s): colon/rectal cancer History of Any Multi-Drug Resistant Organisms: None Reported Past Surgical History: Bowel Resection Additional Past Surgical History / Comment(s): colon resection and ileostomy Past Psychological History: No Psychological Hx Reported Smoking Status: Never smoker Past Alcohol Use History: None Reported Past Drug Use History: None Reported General Exam - General Exam Comments Initial Comments: GENERAL: Patient is well-developed and well-nourished. Patient is nontoxic and in no acute distress. HEAD: Atraumatic, normocephalic. EYES: Pupils equal round and reactive to light, extraocular movements intact, sclera anicteric, conjunctiva are normal. Eyelids were unremarkable. ENT: Nares patent, oropharynx clear without exudates. Moist mucous membranes. NECK: Normal range of motion, supple without lymphadenopathy or JVD. LUNGS: Unlabored respirations. Breath sounds clear to auscultation bilaterally and equal. No wheezes rales or rhonchi. HEART: Regular rate and rhythm without murmurs, rubs or gallops. ABDOMEN: Soft, nontender, normoactive bowel sounds. No guarding, no rebound. No masses appreciated. : Deferred MUSCULOSKELETAL: Normal extremities with adequate strength and normal range of motion, no pitting or edema. No clubbing or cyanosis. Normal graphic production artist strength bilaterally, sensation is equal bilaterally on 4 cavities. NEUROLOGICAL: Patient is alert and oriented x 3. Motor and sensory are also intact. Cranial nerves II through XII grossly intact. Symmetrical smile. Normal speech, normal gait. PSYCH: Normal mood, normal affect. SKIN: Warm, Dry, normal turgor, no rashes or lesions noted. Limitations: no limitations Course Vital Signs 06/11/21 06/11/21 14:49 18:23 Temperature 98.2 F 98.0 F Pulse Rate 77 76 Respiratory 19 20 Rate Blood Pressure 124/80 121/76 O2 Sat by Pulse 98 97 Oximetry Medical Decision Making - Medical Decision Making Patient is a 65-year-old male with history of colon cancer, presenting with a few hours of intermittent right-sided abdominal pain prior to arrival. Also having a few tingling sensations in the tips of his fingers. His vital signs are stable, he has no abdominal pain on palpation here. He states he feels fine. Denies any nausea or vomiting, no fevers. Lab work is unremarkable, urine shows evidence of infection. KUB shows a few air-fluid levels in the right; suggesting liquid stool, no evidence of free air or bowel traction. Patient has been asymptomatic here in the ER, no pain. I discussed these findings with him. I recommended following up with his primary care physician. Return parameters were discussed with him he verbalized understanding. Case discussed with Dr. Baez. - Lab Data Result diagrams: 06/11/21 17:04 06/11/21 17:04 Lab Results 06/11/21 06/11/21 06/11/21 Range/Units 17:04 17:04 17:04 WBC 4.7 (3.8-10.6) k/uL RBC 4.91 (4.30-5.90) m/uL Hgb 16.6 (13.0-17.5) gm/dL Hct 46.8 (39.0-53.0) % MCV 95.2 (80.0-100.0) fL MCH 33.8 (25.0-35.0) pg MCHC 35.5 (31.0-37.0) g/dL RDW 12.9 (11.5-15.5) % Plt Count 97 L (150-450) k/uL MPV 7.8 Neutrophils % 74 % Lymphocytes % 18 % Monocytes % 4 % Eosinophils % 3 % Basophils % 0 % Neutrophils # 3.5 (1.3-7.7) k/uL Lymphocytes # 0.8 L (1.0-4.8) k/uL Monocytes # 0.2 (0-1.0) k/uL Eosinophils # 0.1 (0-0.7) k/uL Basophils # 0.0 (0-0.2) k/uL Sodium 136 L (137-145) mmol/L Potassium 4.3 (3.5-5.1) mmol/L Chloride 104 (98-107) mmol/L Carbon Dioxide 25 (22-30) mmol/L Anion Gap 7 mmol/L BUN 20 (9-20) mg/dL Creatinine 0.75 (0.66-1.25) mg/dL Est GFR (CKD-EPI)AfAm >90 (>60 ml/min/1.73 sqM) Est GFR (CKD-EPI)NonAf >90 (>60 ml/min/1.73 sqM) Glucose 155 H (74-99) mg/dL Calcium 9.3 (8.4-10.2) mg/dL Magnesium 2.1 (1.6-2.3) mg/dL Total Bilirubin 0.9 (0.2-1.3) mg/dL AST 30 (17-59) U/L ALT 27 (4-49) U/L Alkaline Phosphatase 63 (38-126) U/L Total Protein 6.9 (6.3-8.2) g/dL Albumin 4.4 (3.5-5.0) g/dL Urine Color Yellow Urine Appearance Clear (Clear) Urine pH 5.5 (5.0-8.0) Ur Specific [place] 1.021 (1.001-1.035) Urine Protein Negative (Negative) Urine Glucose (UA) Negative (Negative) Urine Ketones Negative (Negative) Urine Blood Negative (Negative) Urine Nitrite Negative (Negative) Urine Bilirubin Negative (Negative) Urine Urobilinogen <2.0 (<2.0) mg/dL Ur Leukocyte Esterase Negative (Negative) Disposition Clinical Impression: Abdominal pain Disposition: HOME SELF-CARE Condition: Stable Instructions (If sedation given, give patient instructions): Abdominal Pain (ED) Additional Instructions: Please return to the Emergency Department if symptoms worsen or any other concerns. Follow-up with your primary care physician. Is patient prescribed a controlled substance at d/c from ED?: No Referrals: Adiel Razo Jr, [Primary Care Provider] - 1-2 days Time of Disposition: 18:40
[2021-06-11 17:31] LABS: Basophils % (A) 0 %; Eosinophils # (A) 0.1 k/uL (0-0.7); Eosinophils % (A) 3 %; HCT 46.8 % (39.0-53.0); HGB 16.6 gm/dL (13.0-17.5); Lymphocytes # (A) 0.8 k/uL (1.0-4.8); Lymphocytes % (A) 18 %; MCH 33.8 pg (25.0-35.0); MCHC 35.5 g/dL (31.0-37.0); MCV 95.2 fL (80.0-100.0); Mean Platelet Volume 7.8; Monocytes # (A) 0.2 k/uL (0-1.0); Monocytes % (A) 4 %; Neutrophils # (A) 3.5 k/uL (1.3-7.7); Neutrophils % (A) 74 %; RBC 4.91 m/uL (4.30-5.90); RDW 12.9 % (11.5-15.5); WBC 4.7 k/uL (3.8-10.6)
[2021-06-11 17:34] LABS: Platelet Count 97 k/uL (150-450)
[2021-06-11 18:27] VITALS: BP 121/76; PULSE 76; RESP 20; TEMP 98
[2021-06-11 18:33] LABS: Appearance,Urine Clear (Clear); Bilirubin,Urine Negative (Negative); Blood,Urine Negative (Negative); Color,Urine Yellow; Glucose,Urine (UA) Negative (Negative); Ketones,Urine Negative (Negative); Leukocyte Esterase,Urine Negative (Negative); Nitrite,Urine Negative (Negative); PH, Urine 5.5 (5.0-8.0); Protein,Urine Negative (Negative); Specific Gravity,Urine 1.021 (1.001-1.035); Urobilinogen,Urine <2.0 mg/dL (<2.0)
== END 2021-06-11 18:52 | disposition home or self-care (01) ==
LOC: EC 13:50
DX: R10.11 Right upper quadrant pain (principal); Z87.442 Personal history of urinary calculi; Z79.4 Long term (current) use of insulin; Z85.038 Personal history of other malignant neoplasm of large intestine
CPT/HCPCS: 36415; 74018; 80053; 81003; 83735; 85025; 99284

== ENCOUNTER 2021-07-15 00:02 | Emergency (ER) | payer OTHER ==
[2021-07-15 00:06] VITALS: BP 156/80; PULSE 78; RESP 20; TEMP 97.7
--- NOTE | 2021-07-15 00:16 | ED ---
Wound/Laceration HPI - General Chief Complaint: Wound/Laceration Stated Complaint: Right leg infection Time Seen by Provider: 07/15/21 00:09 Source: patient, RN notes reviewed Mode of arrival: ambulatory Limitations: no limitations - History of Present Illness Initial Comments: Patient is a 65-year-old male that presents to the emergency department for evaluation of the right lower leg cellulitis. He notes he got bit by a spider not too long ago started getting better its own but recently he noticed that his become red. He notes he found penicillin his house that he took 3 doses of today. Patient was informed that he should not be doing this and he should take ANTIBIOTICS as prescribed until complete every single time and he should never have any left over. Patient was otherwise well-appearing in no apparent distress. He denied any fever nausea vomiting. He denied chest pain shortness of breath headache diarrhea constipation fatigue chills. - Related Data Home Medications Medication Instructions Recorded Confirmed Ciprofloxacin HCl 500 mg PO BID 06/11/21 06/11/21 Insulin Glargine,Hum.rec.anlog 25 unit SQ HS 06/11/21 06/11/21 [Lantus Solostar Pen] Previous Rx's Medication Instructions Recorded Sulfamethox-Tmp 800-160Mg [Bactrim 1 each PO Q12HR #20 tab 07/15/21 Ds] Allergies Allergy/AdvReac Type Severity Reaction Status Date / Time Tetracyclines Allergy Unknown Verified 07/15/21 00:03 Childhood Review of Systems ROS Statement: Those systems with pertinent positive or pertinent negative responses have been documented in the HPI. ROS Other: All systems not noted in ROS Statement are negative. Past Medical History Past Medical History: Cancer, Prostate Disorder Additional Past Medical History / Comment(s): colon/rectal cancer History of Any Multi-Drug Resistant Organisms: None Reported Past Surgical History: Bowel Resection Additional Past Surgical History / Comment(s): colon resection and ileostomy Past Psychological History: No Psychological Hx Reported Smoking Status: Never smoker Past Alcohol Use History: None Reported Past Drug Use History: None Reported General Exam Limitations: no limitations General appearance: alert, in no apparent distress Head exam: Present: atraumatic, normocephalic, normal inspection Eye exam: Present: normal appearance, PERRL, EOMI. Absent: scleral icterus, conjunctival injection, periorbital swelling ENT exam: Present: normal exam, mucous membranes moist Neck exam: Present: normal inspection. Absent: tenderness, meningismus, lymphadenopathy Respiratory exam: Present: normal lung sounds bilaterally. Absent: respiratory distress, wheezes, rales, rhonchi, stridor Cardiovascular Exam: Present: regular rate, normal rhythm, normal heart sounds. Absent: systolic murmur, diastolic murmur, rubs, gallop, clicks Extremities exam: Present: normal inspection, full ROM, normal capillary refill. Absent: tenderness, pedal edema, joint swelling, calf tenderness Neurological exam: Present: alert, oriented X3 Psychiatric exam: Present: normal affect, normal mood Skin exam: Present: warm, dry, intact, normal color, erythema (Right lateral lower leg measure prostate 4" x 4".). Absent: rash Course Vital Signs 07/15/21 00:03 Temperature 97.7 F Pulse Rate 78 Respiratory 20 Rate Blood Pressure 156/80 O2 Sat by Pulse 96 Oximetry Medical Decision Making - Medical Decision Making 65-year-old male with a right lower leg cellulitis from a spider bite. Patient notes he took 3 doses of penicillin today that he follow lying around his house. Patient was informed that he should never have any antibiotics left over. Patient will be sent antibiotic suitable for skin infections to his pharmacy. Patient is agreeable discharge home. Case discussed with Dr. Chowdary, patient discharge home. Disposition Clinical Impression: Cellulitis Disposition: HOME SELF-CARE Condition: Stable Instructions (If sedation given, give patient instructions): Cellulitis (ED) Additional Instructions: Please return to the Emergency Department if symptoms worsen or any other concerns. Follow-up with primary care in 1-2 days. Take antibiotics as prescribed until complete. Is patient prescribed a controlled substance at d/c from ED?: No Referrals: Adiel Razo Jr, [Primary Care Provider] - 1-2 days Time of Disposition: 00:15
== END 2021-07-15 01:03 | disposition home or self-care (01) ==
LOC: EC 00:02
DX: L03.115 Cellulitis of right lower limb (principal); Z88.1 Allergy status to other antibiotic agents
CPT/HCPCS: 99283

== ENCOUNTER → 2021-08-09 | Outpatient (CLI) | payer OTHER ==
[~2021-08-09] MED LIST: CASIRIVIMAB (REGN10933) (EUA) 600 MG, IMDEVIMAB (REGN10987) (EUA) 600 MG in SODIUM CHLO... IVPB ONE; SODIUM CHLORIDE 0.9% 50 ML IVPB ONE; SODIUM CHLORIDE 0.9% 500 ML 500 ML in EMPTY BAG 1 BAG IV PRN
[2021-08-09 12:52] VITALS: TEMP 98.3
[2021-08-09 12:59] VITALS: BP 134/80; PULSE 70; RESP 16
== END ==
LOC: PROCWHC3 10:01
PROVIDERS: ATTEND Family Medicine
DX: U07.1 COVID-19 (principal); E11.9 Type 2 diabetes mellitus without complications
CPT/HCPCS: 96360; Q0244; M0243

== ENCOUNTER → 2021-10-04 | Outpatient (CLI) | payer MEDICARE, OTHER ==
[2021-10-04 17:05] LABS: Basophils # (A) 0.01 X 10*3/uL (0.00-0.10); Basophils % (A) 0.2 %; Eosinophils # (A) 0.06 X 10*3/uL (0.04-0.35); Eosinophils % (A) 1.5 %; HCT 47.6 % (39.6-50.0); HGB 16.2 g/dL (13.0-17.0); Immature Grans, Automated 0.2 %; Lymphocytes # (A) 0.78 X 10*3/uL (0.90-5.00); Lymphocytes % (A) 19.1 %; MCH 32.1 pg (27.0-32.0); MCV 94.4 fL (80.0-97.0); Mean Platelet Volume 11.1 fL (9.5-12.2); Monocytes # (A) 0.24 X 10*3/uL (0.20-1.00); Monocytes % (A) 5.9 %; NRBC Per 100 WBC 0 /100 WBCS (0.0-0.0); Neutrophils # (A) 2.98 X 10*3/uL (1.80-7.70); Neutrophils % (A) 73.1 %; Platelet Count 78 X 10*3/uL (140-440); RBC 5.04 X 10*6/uL (4.40-5.60); RDW 12.5 % (11.5-14.5); WBC 4.08 X 10*3/uL (4.50-10.00)
[2021-10-04 17:06] LABS: Immature Platelet Fraction 5.3 % (1.1-6.1)
[2021-10-04 19:11] LABS: ALT 36 U/L (10-49); AST 20 U/L (14-35); African American GFR (CKD) 93.8 (60.0-200.0); Albumin 4.7 g/dL (3.8-4.9); Albumin/Globulin Ratio 2.23 (1.60-3.17); Alkaline Phosphatase 62 U/L (41-126); BUN/Creat Ratio 23.22 Ratio (12.00-20.00); Blood Urea Nitrogen 22.8 mg/dL (9.0-27.0); Carbon Dioxide 25.3 mmol/L (20.0-27.5); Chloride 98 mmol/L (96-109); Chol/HDL Ratio 5.68 Ratio; Globulin 2.1 g/dL (1.6-3.3); Glucose 288 mg/dL (70-110); LDL Cholesterol,Calculated 112.9 mg/dL (0.0-131.0); Magnesium 2.2 mg/dL (1.5-2.4); Non-African American GFR(CKD) 80.9 (60.0-200.0); Potassium 4.4 mmol/L (3.5-5.5); Sodium 137 mmol/L (135-145); Total Protein 6.8 g/dL (6.2-8.2)
== END | disposition home or self-care (01) ==
LOC: LABWHC1 10:40
PROVIDERS: ATTEND Family Medicine
DX: E11.65 Type 2 diabetes mellitus with hyperglycemia (principal); K91.2 Postsurgical malabsorption, not elsewhere classified; R07.9 Chest pain, unspecified
CPT/HCPCS: 36415; 80053; 80061; 83036; 83735; 84443; 85025

== ENCOUNTER → 2021-11-25 | Outpatient (CLI) | payer MEDICARE, OTHER ==
[2021-11-25 13:56] LABS: African American GFR (CKD) >90 (>60 ml/min/1.73 sqM); Blood Urea Nitrogen 23 mg/dL (9-20); Non-African American GFR(CKD) 87 (>60 ml/min/1.73 sqM)
--- NOTE | 2021-11-25 13:58 | CT ---
EXAMINATION TYPE: CT abdomen pelvis w con DATE OF EXAM: 11/25/2021 COMPARISON: 12/03/2020 HISTORY: Rectosigmoid ca, observe for mets. CT DLP: 1468 mGycm CONTRAST: CT scan of the abdomen and pelvis is performed with Oral Contrast and with IV Contrast, patient injec mark with 100 mL of Isovue M300. FINDINGS: LUNG BASES-: No visible nodule. No infiltrate. LIVER/GB: No calcified gallstones. Again noted are subtle hypodense lesions within the liver compat ible with metastatic disease unchanged from prior study. Biliary tree is of normal caliber. PANCREAS: No inflammation. No distinct mass. SPLEEN: No splenic enlargement. No lesion seen. ADRENALS: No nodule. No thickening. KIDNEYS/BLADDER: No hydronephrosis. Nonobstructing left-sided nephrolithiasis. No distinct renal mas s. Urinary bladder grossly unremarkable. BOWEL: Previous rectosigmoid resection redemonstrated. Persistent abnormal soft tissue within the pre sacral space likely post treatment in nature. No new mass or abnormal fluid collection. Remainder of the small and large bowel are of normal caliber. Nonvisualization of the appendix at this time. GENITAL ORGANS: No gross abnormality. LYMPH NODES: No greater than 1cm abdominal or pelvic lymph nodes are appreciated. AORTA: No significant abnormality. OSSEOUS STRUCTURES: No significant abnormality is seen. OTHER: No significant additional abnormality is seen. IMPRESSION: 1. Stable postsurgical and posttreatment changes, no new or enlarging mass or adenopathy identified t o suggest neoplastic recurrence. Hypoattenuating hepatic lesions are stable.
== END | disposition home or self-care (01) ==
LOC: RADCTMAIN 09:07
PROVIDERS: ATTEND Internal Medicine Hematology & Oncology
DX: C19 Malignant neoplasm of rectosigmoid junction (principal); K76.89 Other specified diseases of liver
CPT/HCPCS: 82565; 84520; 74177; 36415; Q9967

== ENCOUNTER 2021-12-21 14:57 | Emergency (ER) | payer MEDICARE, OTHER ==
[2021-12-21 15:50] VITALS: BP 138/80; RESP 16; TEMP 98.4
[2021-12-21] MEDS ORDERED: CEPHALEXIN 500MG STARTER PACK 4 CAP BTL PO STA (18:11)
[2021-12-21] MEDS ORDERED: SULFAMETH-TMP DS STARTER PACK 2 TAB BTL PO STA (18:11)
--- NOTE | 2021-12-21 18:16 | ED ---
General Adult HPI - General Chief complaint: Wound/Laceration Stated complaint: R leg sore Time Seen by Provider: 12/21/21 17:59 Source: patient, RN notes reviewed, old records reviewed Mode of arrival: ambulatory Limitations: no limitations - History of Present Illness Initial comments: 66-year-old male history of chronic wound to the right lower extremity presents for wound evaluation. Patient is a diabetic. He has not had fevers or systemic symptoms. He had been following with wound care regarding a nonhealing wound for some time which recently was healed and then he developed a new erythema at the site and some skin breakdown secondary to bandage adhesive. - Related Data Home Medications Medication Instructions Recorded Confirmed Ciprofloxacin HCl 500 mg PO BID 06/11/21 06/11/21 Insulin Glargine,Hum.rec.anlog 25 unit SQ HS 06/11/21 06/11/21 [Lantus Solostar Pen] Previous Rx's Medication Instructions Recorded Sulfamethox-Tmp 800-160Mg [Bactrim 1 each PO Q12HR #20 tab 07/15/21 Ds] Cephalexin [Keflex] 500 mg PO QID 10 Days #40 cap 12/21/21 Sulfamethox-Tmp 800-160Mg [Bactrim 1 tab PO Q12HR #28 tab 12/21/21 DS 800-160 mg] Allergies Allergy/AdvReac Type Severity Reaction Status Date / Time Tetracyclines Allergy Unknown Verified 12/21/21 15:51 Childhood Review of Systems ROS Statement: Those systems with pertinent positive or pertinent negative responses have been documented in the HPI. ROS Other: All systems not noted in ROS Statement are negative. Past Medical History Past Medical History: Cancer, Prostate Disorder Additional Past Medical History / Comment(s): colon/rectal cancer History of Any Multi-Drug Resistant Organisms: None Reported Past Surgical History: Bowel Resection Additional Past Surgical History / Comment(s): colon resection and ileostomy Past Psychological History: No Psychological Hx Reported Smoking Status: Never smoker Past Alcohol Use History: None Reported Past Drug Use History: None Reported General Exam Limitations: no limitations General appearance: alert, in no apparent distress Head exam: Present: atraumatic, normocephalic Eye exam: Present: normal appearance, PERRL Neck exam: Present: normal inspection, tenderness Respiratory exam: Present: normal lung sounds bilaterally. Absent: respiratory distress, wheezes Cardiovascular Exam: Present: regular rate, normal rhythm GI/Abdominal exam: Present: soft. Absent: distended, tenderness Extremities exam: Present: other (Chronic venous stasis bilaterally, he small punctate ulceration on the lateral aspect of the distal lower leg and an adjacent skin breakdown secondary to bandage adhesive) Course Vital Signs 12/21/21 15:47 Temperature 98.4 F Pulse Rate 75 Respiratory 16 Rate Blood Pressure 138/80 O2 Sat by Pulse 98 Oximetry Medical Decision Making - Medical Decision Making 66-year-old male well-appearing, afebrile with normal vitals. He has a right lower extremity cellulitis and nonhealing ulcer. He started on oral antibiotics in the emergency department. He will continue to follow with the wound center. DP pulses 2+ in the right lower extremity Disposition Clinical Impression: Chronic wound of extremity, Cellulitis Disposition: HOME SELF-CARE Condition: Good Instructions (If sedation given, give patient instructions): Chronic Wound Care (ED), Cellulitis (ED) Prescriptions: Sulfamethox-Tmp 800-160Mg [Bactrim DS 800-160 mg] 1 tab PO Q12HR #28 tab Cephalexin [Keflex] 500 mg PO QID 10 Days #40 cap Is patient prescribed a controlled substance at d/c from ED?: No Referrals: Luis Eduardo Beltran MD [Primary Care Provider] - 1-2 days Time of Disposition: 18:15
[2021-12-21 18:28] VITALS: PULSE 78
== END 2021-12-21 18:28 | disposition home or self-care (01) ==
LOC: EC 14:57
DX: S81.809A Unspecified open wound, unspecified lower leg, initial encounter (principal); L03.115 Cellulitis of right lower limb; Z88.1 Allergy status to other antibiotic agents; X58.XXXA Exposure to other specified factors, initial encounter
CPT/HCPCS: 99282

== ENCOUNTER → 2022-01-08 | Outpatient (CLI) | payer MEDICARE, OTHER ==
[2022-01-08 22:33] LABS: Basophils # (A) 0.01 X 10*3/uL (0.00-0.10); Basophils % (A) 0.3 %; Eosinophils # (A) 0.06 X 10*3/uL (0.04-0.35); Eosinophils % (A) 1.7 %; HCT 46.5 % (39.6-50.0); HGB 15.8 g/dL (13.0-17.0); Immature Grans, Automated 0.3 %; Lymphocytes # (A) 0.63 X 10*3/uL (0.90-5.00); Lymphocytes % (A) 18.3 %; MCV 94.1 fL (80.0-97.0); Monocytes # (A) 0.15 X 10*3/uL (0.20-1.00); Monocytes % (A) 4.3 %; NRBC Per 100 WBC 0 /100 WBCS (0.0-0.0); Neutrophils # (A) 2.59 X 10*3/uL (1.80-7.70); Neutrophils % (A) 75.1 %; Platelet Count 90 X 10*3/uL (140-440); RBC 4.94 X 10*6/uL (4.40-5.60); RDW 12.1 % (11.5-14.5); WBC 3.45 X 10*3/uL (4.50-10.00)
[2022-01-08 23:39] LABS: INR 1.01 (0.90-1.11); Prothrombin Time 11.1 sec (9.9-11.9)
== END | disposition home or self-care (01) ==
LOC: LABWHC1 15:56
PROVIDERS: ATTEND Nurse Practitioner Family
DX: I82.409 Acute embolism and thrombosis of unspecified deep veins of unspecified lower extremity (principal); Z79.01 Long term (current) use of anticoagulants
CPT/HCPCS: 36415; 85025; 85610

== ENCOUNTER → 2022-01-08 | Outpatient (CLI) | payer MEDICARE, OTHER ==
--- NOTE | 2022-01-08 15:17 | US ---
EXAMINATION TYPE: US venous doppler duplex LE DATE OF EXAM: 01/08/2022 12:51 PM COMPARISON: NONE CLINICAL HISTORY: I83.019 VARICOSE VEINS OF RIGHT , L30.9 DERMATITIS. SIDE PERFORMED: TECHNIQUE: The lower extremity deep venous system is examined utilizing real time linear array sonog cha with graded compression, doppler sonography and color-flow sonography. VESSELS IMAGED: Common Femoral Vein Deep Femoral Vein Greater Saphenous Vein * Femoral Vein Popliteal Vein Small Saphenous Vein * Proximal Calf Veins (* superficial vessels) Right Leg: Positive for DVT Non-occluding thrombus seen from groin to mid popliteal where this becomes occluding. This could be a cute. Left Leg: Positive for DVT, thready flow, probable chronic DVT. IMPRESSION: 1. Suspect acute DVT right lower extremity with chronic DVT left lower extremity.
== END | disposition home or self-care (01) ==
LOC: RADUSWWP 12:11
PROVIDERS: ATTEND Family Medicine
DX: L30.9 Dermatitis, unspecified (principal); I83.019 Varicose veins of right lower extremity with ulcer of unspecified site
CPT/HCPCS: 93970

== ENCOUNTER → 2022-01-08 | Outpatient (CLI) | payer MEDICARE, OTHER ==
--- NOTE | 2022-01-09 06:01 | MR ---
EXAMINATION TYPE: MR knee RT wo con DATE OF EXAM: 01/08/2022 COMPARISON: 03/29/2020 HISTORY: Right knee pain Multiplanar multiecho imaging of the right knee with no contrast. There is moderate knee joint effusion. The posterior cruciate ligament is intact. There is complete t ear of the anterior cruciate ligament. There is spurring of the patella. There is horizontal tear through the posterior horn of the medial meniscus extending to the superior surface. The lateral meniscus shows some increased signal on the superior surface on the anterior hor n. There is hypertrophic spurring of the femoral and tibial condyles. There is a 1 cm area of subchondra l edema in the healed tibial condyle. The collateral ligaments appear intact. No fracture seen. IMPRESSION: There is some osteoarthritis. There are small bone bruise and edema in the medial aspect medial tibia l condyle. Complete tear anterior cruciate ligament. Knee joint effusion. Vertical tear of the anterior horn of the lateral meniscus. Oblique tear of the posterior horn of the medial meniscus.
== END | disposition home or self-care (01) ==
LOC: RADMRIMAIN 14:40
PROVIDERS: ATTEND Student in an Organized Health Care Education/Training Program
DX: S83.511A Sprain of anterior cruciate ligament of right knee, initial encounter (principal); M17.11 Unilateral primary osteoarthritis, right knee; X58.XXXA Exposure to other specified factors, initial encounter

== ENCOUNTER → 2022-11-26 | Outpatient (CLI) | payer MEDICARE, OTHER ==
[2022-11-26 11:27] LABS: African American GFR (CKD) >90 (>60 ml/min/1.73 sqM); Blood Urea Nitrogen 23 mg/dL (9-20); Non-African American GFR(CKD) >90 (>60 ml/min/1.73 sqM)
--- NOTE | 2022-11-26 13:06 | CT ---
EXAMINATION TYPE: CT abdomen pelvis w con DATE OF EXAM: 11/26/2022 COMPARISON: Most recent CT November 25, 2021 and older studies. HISTORY: Hx colon ca, regular follow up CT DLP: 1173 mGycm, Automated Exposure Control for Dose Reduction was Utilized. CONTRAST: CT scan of the abdomen and pelvis is performed with oral and with IV Contrast, patient injected with 100 mL of Isovue 300. FINDINGS: LUNG BASES: Mild to moderate posterior bibasilar linear scarring and/or atelectasis is redemonstrated . Stable elevated left hemidiaphragm is redemonstrated. LIVER/GB: Subcentimeter hypodense lesions in liver are less well seen on current study. One is noted left hepatic lobe anteriorly exophytic image 16. No greater than 1 cm hypodense lesions. PANCREAS: No significant abnormality is seen. SPLEEN: Persistent splenomegaly at 17.0 cm long axis axial image 16. ADRENALS: No significant abnormality is seen. KIDNEYS: Stable nonobstructing 4 mm left renal calculus coronal image 65. No hydronephrosis or obstru cting renal calculi bilaterally. BOWEL: Oral contrast does not reach the level the terminal ileum making evaluation of distal bowel is suboptimal. No suspicious small or large bowel dilatation. Surgical sutures from prior resection sig moid rectal colon axial image 75 are redemonstrated. Persistent abnormal soft tissue in the presacral space axial images 64 through 77 is redemonstrated. No increased thickening at these levels. No new bony destruction. No new adjacent adenopathy clearly seen. Findings favor posttreatment change. PROSTATE/SEMINAL VESICLES: Central calcifications in the nonenlarged prostate gland are redemonstrate d. LYMPH NODES: No new greater than 1cm abdominal or pelvic lymph nodes are appreciated. Subcentimeter scattered retroperitoneal lymph nodes are redemonstrated and stable. OSSEOUS STRUCTURES: Stable moderate disc space narrowing and vacuum disc phenomenon L4-L5 level. Stab le nonspecific sclerotic focus L5 vertebral coronal image 62 favored benign. [id number] axial j oint space loss and spurring of both hips is redemonstrated. OTHER: Focal scarring anterior abdominal wall right of the umbilicus on axial image 49 is redemonstra mark. IMPRESSION: Stable postsurgical and posttreatment changes, no new or enlarging mass or adenopathy bj ntified to suggest active neoplastic recurrence
== END | disposition home or self-care (01) ==
LOC: RADCTMAIN 10:29
PROVIDERS: ATTEND Internal Medicine Hematology & Oncology
DX: C19 Malignant neoplasm of rectosigmoid junction (principal); E11.9 Type 2 diabetes mellitus without complications; K12.31 Oral mucositis (ulcerative) due to antineoplastic therapy; Z71.3 Dietary counseling and surveillance
CPT/HCPCS: 82565; 84520; 74177; 36415; Q9967

== ENCOUNTER → 2023-03-24 | Outpatient (CLI) | payer MEDICARE, OTHER ==
--- NOTE | 2023-03-24 12:53 | XR ---
EXAMINATION TYPE: XR elbow complete RT DATE OF EXAM: 03/24/2023 12:47 PM INDICATION: Patient age:Male; 67 years old; Reason for study: M77.01; [facility]. COMPARISON: None TECHNIQUE: The right elbow was examined in AP, lateral, and oblique projections. FINDINGS: No evidence of any acute osseous pathology, joint dislocation, or soft tissue swelling is n oted. No evidence of joint effusion is present. IMPRESSION: No evidence of acute fracture.
== END | disposition home or self-care (01) ==
LOC: RADXRMAIN 12:26
PROVIDERS: ATTEND Nurse Practitioner Women's Health
DX: M77.01 Medial epicondylitis, right elbow (principal)

== ENCOUNTER → 2023-08-20 | Outpatient (CLI) | payer MEDICARE, OTHER ==
--- NOTE | 2023-08-20 14:13 | CT ---
EXAMINATION TYPE: CT heart w calcium score DATE OF EXAM: 08/20/2023 COMPARISON: None. HISTORY: Screening for cardiovascular disorder. 213.9 CT DLP: 91.4 mGycm Automated exposure control for dose reduction was used. CT CALCIUM SCORING Coronary calcium is a marker for plaque (fatty deposits) in a blood vessel or atherosclerosis (harden ing of the arteries). The presence and amount of calcium detected in a coronary artery by the CT sca n, indicates the presence and amount of atherosclerotic plaque. These calcium deposits appear years before the development of heart disease symptoms such as chest pain and shortness of breath. A calcium score is computed for each of the coronary arteries based upon the volume and density of th e calcium deposits. This can be referred to as your calcified plaque burden. It does not correspond directly to the percentage of narrowing in the artery but does correlate with the severity of the un derlying coronary atherosclerosis. PROCEDURE TECHNIQUE - Prospective Gating was used. Slice thickness: 3mm. Density threshold (HU): 130, Pixel threshold: 3, Algorithm: discrete. RESULTS Region: LM Calcium Score ([place]): 0 Volume (mm3): 0 Mass (g): 0 Region: RCA Calcium Score ([place]): 87.65 Volume (mm3): 71.94 Mass (g): 23.98 Region: LAD Calcium Score ([place]): 318.07 Volume (mm3): 256.33 Mass (g): 85.44 Region: CX Calcium Score ([place]): 0 Volume (mm3): 0 Mass (g): 0 Region: PDA Calcium Score ([place]): 0 Volume (mm3): 0 Mass (g): 0 Total: Calcium Score ([place]): 405.72 Volume (mm3): 328.27 Mass (g): 109.42 TOTAL CALCIUM SCORE: 405.72 Incidental findings: Mild to moderate linear scarring in the left lung base. Slightly elevated left d iaphragm. IMPRESSION: Calcium Score: 401 or higher Implication: Extensive atherosclerotic plaque Risk of Coronary Artery Disease: High likelihood of at least one significant coronary narrowing. CALCIUM SCORE IMPLICATION RISK OF C ORONARY ARTERY DISEASE 0 No identifiable plaque Very low, generally less than 5% 1-10 Minimal identifiable plaque Very unlikely, less than 10% 11-100 Definite, at least mild atherosclerotic plaque Mild or m inimal coronary narrowings likely 101-400 Definite, at least moderate atherosclerotic plaque Mild coronary ar bryan disease highly likely, significant narrowing possible 401 or Higher Extensive atherosclerotic plaque High lik elihood of at least one significant coronary narrowing
== END | disposition home or self-care (01) ==
LOC: RADCTMAIN 13:16
PROVIDERS: ATTEND Internal Medicine
DX: Z13.6 Encounter for screening for cardiovascular disorders (principal); I25.10 Atherosclerotic heart disease of native coronary artery without angina pectoris; E78.2 Mixed hyperlipidemia
CPT/HCPCS: 75571

== ENCOUNTER → 2023-08-31 | Outpatient (CLI) | payer MEDICARE, OTHER | END | disposition home or self-care (01) | LOC: LABWHC1 14:09 | PROVIDERS: ATTEND Orthopaedic Surgery Adult Reconstructive Orthopaedic Surgery | DX: Z01.89 Encounter for other specified special examinations (principal); Z13.1 Encounter for screening for diabetes mellitus; M17.11 Unilateral primary osteoarthritis, right knee | CPT/HCPCS: 87070 ==

== ENCOUNTER → 2023-09-30 | Outpatient (CLI) | payer MEDICARE, OTHER ==
--- NOTE | 2023-09-30 20:08 | US ---
EXAMINATION TYPE: US arterial LE single level DATE OF EXAM: 09/30/2023 2:33 PM CLINICAL INDICATION: Male, 67 years old with history of I73.9 PERIPHERAL VASCULAR DISEASE, UNSPECIFIE D; Patient discoloration of feet History of: Smoker: Previous Hypertension: No Diabetic: Yes Hyperlipidemia: No TIA/CVA: No Previous Vascular Surgery: No CAD: No VA: No Vascular Ulcers: No Claudication: No Gangrene: No Doppler Waveforms: Right: Biphasic, distal digit is monophasic Left: Biphasic, distal digit is monophasic Right Brachial Pressure: 131 Left Brachial Pressure: 130 Ankle-Brachial Indices: Right: 1.2 Left: 1.2 Toe Brachial Indices: Right: 0.8 Left: 0.8 IMPRESSION: No significant flow-limiting stenosis
== END | disposition home or self-care (01) ==
LOC: RADUSWWP 13:31
PROVIDERS: ATTEND Family Medicine
DX: I73.9 Peripheral vascular disease, unspecified (principal)
CPT/HCPCS: 93922

== ENCOUNTER → 2023-10-20 | Outpatient (CLI) | payer MEDICARE, OTHER ==
[2023-10-20 14:03] LABS: INR 1.2 (<1.2); Partial Thromboplastin Time 31.3 sec (22.0-30.0); Prothrombin Time 12.6 sec (10.0-12.5)
[2023-10-20 17:37] LABS: HCT 46.8 % (39.6-50.0); HGB 16.5 g/dL (13.0-17.0); MCH 32.5 pg (27.0-32.0); MCHC 35.3 g/dL (32.0-37.0); MCV 92.1 FL (80.0-97.0); Mean Platelet Volume 10.4 FL (9.5-12.2); NRBC Per 100 WBC 0 X 10*3/uL (0.00-0.01); Platelet Count 102 X 10*3/uL (140-440); RBC 5.08 X 10*6/uL (4.40-5.60); RDW 12.1 % (11.5-14.5); WBC 3.78 X 10*3/uL (4.50-10.00)
[2023-10-20 17:38] LABS: ALT 38 U/L (10-49); AST 26 U/L (14-35); Albumin 4.7 g/dL (3.8-4.9); Albumin/Globulin Ratio 2.47 Ratio (1.60-3.17); Alkaline Phosphatase 54 U/L (41-126); BUN/Creat Ratio 19.82 Ratio (12.00-20.00); Blood Urea Nitrogen 21.8 mg/dL (9.0-27.0); Calcium 9.6 mg/dL (8.7-10.3); Carbon Dioxide 29.3 mmol/L (21.6-31.8); Chloride 101 mmol/L (96-109); Globulin 1.9 g/dL (1.6-3.3); Glucose 157 mg/dL (70-110); Potassium 4.8 mmol/L (3.5-5.5); Sodium 140 mmol/L (135-145); Total Protein 6.6 g/dL (6.2-8.2)
== END | disposition home or self-care (01) ==
LOC: LABWHC1 12:57
PROVIDERS: ATTEND Orthopaedic Surgery Adult Reconstructive Orthopaedic Surgery
DX: Z01.89 Encounter for other specified special examinations (principal); M25.561 Pain in right knee; M17.11 Unilateral primary osteoarthritis, right knee
CPT/HCPCS: 36415; 80053; 83036; 85027; 85610; 85730; 87070

== ENCOUNTER → 2024-01-01 | Outpatient (CLI) | payer MEDICARE, OTHER ==
[2024-01-01 14:59] LABS: African American GFR (CKD) >90 (>60 ml/min/1.73 sqM); Blood Urea Nitrogen 26 mg/dL (9-20); Non-African American GFR(CKD) 83 (>60 ml/min/1.73 sqM)
--- NOTE | 2024-01-11 12:59 | CT ---
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 Delayed images through the kidneys were obtained. Coronal /sagittal reconstructions performed. CT DLP: 921.7 mGycm Automated exposure control for dose reduction was used. FINDINGS: CHEST: Heart normal size without pericardial effusion. LAD and mild RCA coronary artery calcifications are p resent. Aorta normal caliber with conventional arch vessel branching anatomy. Borderline caliber main right and left pulmonary arteries up to 2.5 cm suggesting underlying pulmonar y hypertension. No thoracic lymphadenopathy with CT size criteria. Trace bilateral gynecomastia. No thoracic lymphadenopathy by CT size criteria. Chronic pleural parenchymal scarring posterior mid and lower lungs. No consolidation or pleural effus ion. No suspicious pulmonary nodule or mass. ABDOMEN: No focal lesion or biliary ductal dilatation. Portal and hydropic gallbladder measuring 4.4 cm wide b ut without any surrounding inflammation, probably due to fasting state. Portal venous system is paten t. No biliary ductal dilatation. Adrenal glands, right kidney, and pancreas limits. 6 mm nonobstructive left renal stone. Splenomegaly at 16.3 cm, unchanged. Borderline sized 1.1 cm lower aortocaval lymph node remains unchanged. Additional scattered nonenlarg ed retroperitoneal nodes are also unchanged. No dilated small bowel, free fluid, or free air. Moderate stool burden. Previous resection and reanastomosis at the rectosigmoid junction. PELVIS: Prominent presacral soft tissue thickening measuring up to 1.8 cm remains unchanged. Mild circumferen tial bladder wall thickening is unchanged. External iliac chain lymph nodes are unchanged, measuring up to 1.2 cm on the left. No new pelvic lym phadenopathy or otherwise any abnormal fluid collection seen. BONES: Moderate to advanced degenerative disc disease L4-L5. Hypertrophic facet arthropathy lower lumbar spi ne especially towards the right. Moderate degenerative change both hips. No osseous destructive proce ss. IMPRESSION: 1. STABLE POSTSURGICAL CHANGE IN THE PELVIS INCLUDING PRESACRAL SOFT TISSUE THICKENING AND RECTOSIGMO ID REANASTOMOSIS. A FEW SCATTERED PROMINENT RETROPERITONEAL LYMPH NODES MEASURING UP TO 1.1 CM ARE UN CHANGED. NO EVIDENCE FOR RECURRENT OR METASTATIC DISEASE IN THE CHEST, ABDOMEN, OR PELVIS. 2. STABLE PLEURAL-PARENCHYMAL SCARRING POSTERIOR MID AND LOWER LUNGS. 3. STABLE SPLENOMEGALY AT 16.3 CM. CLINICALLY CORRELATE. 4. 6 MM NONOBSTRUCTIVE LEFT RENAL STONE.
== END | disposition home or self-care (01) ==
LOC: RADCTMAIN 13:48
PROVIDERS: ATTEND Internal Medicine Hematology & Oncology
DX: C19 Malignant neoplasm of rectosigmoid junction (principal); E11.9 Type 2 diabetes mellitus without complications; K12.31 Oral mucositis (ulcerative) due to antineoplastic therapy; J98.4 Other disorders of lung; R16.1 Splenomegaly, not elsewhere classified; N20.0 Calculus of kidney; Z71.3 Dietary counseling and surveillance
CPT/HCPCS: 82565; 84520; 71260; 74177; 36415; Q9967

== ENCOUNTER → 2024-03-19 | Outpatient (CLI) | payer MEDICARE, OTHER ==
--- NOTE | 2024-04-12 15:35 | MR ---
Patient: Declan Bravo J Ordering Physician: Unknown, Unknown ID: [id number] Phone, Pager: Phone: N/A Pager: N/A : [phone] Age/Gender: 68Y, M Primary Location: N/A Procedure: MRI KNEE W/O CONTR AST LEFT Study Date: 03/19/2024 10:49:59 AM Order #: N/A EXAMINATION TYPE: MR knee LT wo con DATE OF EXAM: 03/19/2024 COMPARISON: NONE HISTORY: Left knee outer pain for 4 to 5 months. Tear of medial meniscus per order. TECHNIQUE: Multiplanar, multisequence images of the knee is performed without IV contrast. FINDINGS: MEDIAL MENISCUS: Horizontal oblique signal posterior horn. Horizontal signal anterior horn. Abnormal signal posterior horn comes very close to the articular surface. LATERAL MENISCUS: Anterior and posterior horns are intact without tear. CRUCIATE LIGAMENTS: The posterior cruciate ligament is intact and unremarkable. Anterior cruciate lig ament shows increased signal but remains intact COLLATERAL LIGAMENTS: The medial collateral ligament and lateral collateral ligament complex are inta ct and unremarkable. EXTENSOR MECHANISM: Visualized quadriceps and patellar tendons are intact. Some increased signal prox imal patellar tendon. EFFUSION: Moderate to large size suprapatellar joint effusion. POPLITEAL CYST: No popliteal/miner cyst. TRICOMPARTMENT SPACES: Mild to moderate tricompartment joint space loss and spurring. CARTILAGE: Some cartilaginous loss medial tibiofemoral compartment. No significant chondromalacia pat mary. BONE MARROW SIGNAL: No focal abnormal marrow signal is appreciated. OTHER: No additional significant abnormality is appreciated. IMPRESSION: 1. Intrasubstance tear anterior horn of medial meniscus. 2. At least intrasubstance the suspected full-thickness tear posterior horn medial meniscus. 3. Moderate to large-sized suprapatellar joint effusion. 4. Mild to moderate tricompartment degenerative changes most prominent medial tibiofemoral compartmen t as detailed above. 5. Mild Proximal patellar tendinosis. 6. Myxoid degeneration and/or partial tearing of the anterior cruciate ligament.
== END | disposition home or self-care (01) ==
LOC: RADMRIMAIN 10:56
PROVIDERS: ATTEND Orthopaedic Surgery Adult Reconstructive Orthopaedic Surgery
DX: S83.242A Other tear of medial meniscus, current injury, left knee, initial encounter (principal); M17.12 Unilateral primary osteoarthritis, left knee; M25.462 Effusion, left knee

== ENCOUNTER → 2024-11-01 | Outpatient (CLI) | payer MEDICARE, OTHER ==
--- NOTE | 2024-11-01 12:30 | US ---
EXAMINATION TYPE: US venous doppler duplex LE DATE OF EXAM: 11/01/2024 12:15 PM COMPARISON: 01/08/22 bilateral ultrasound CLINICAL INDICATION: Male, 68 years old with history of E11.43 TYPE 2 DIABETES R09.89 POOR CIRCULATIO N; Poor circulation. Pt states no leg pain or swelling. Hx of DVT. Pt has factor 5. On blood thinners for years, Pain TECHNIQUE: The lower extremity deep venous system is examined utilizing real time linear array sonog cha with graded compression, color doppler sonography, and spectral doppler. SIDE PERFORMED: Bilateral FINDINGS: VESSELS IMAGED: Common Femoral Vein Deep Femoral Vein Greater Saphenous Vein * Femoral Vein Popliteal Vein Small Saphenous Vein * Proximal Calf Veins (* superficial vessels) Right Leg: Echoes seen from CFV to calf veins. Vein appears mostly compressible with limited blood f low., Color Doppler imaging shows patency of the vessels. Spectral waveforms are within normal limits . Left Leg: Echoes seen from CFV to calf veins. Vein appears mostly compressible with limited blood fl ow., Color Doppler imaging shows patency of the vessels. Spectral waveforms are within normal limits. IMPRESSION: Remnant partially occlusive chronic DVT bilaterally is present on current study . [facility], , 11/01/2024 12:28 PM
--- NOTE | 2024-11-01 13:16 | US ---
EXAMINATION TYPE: US arterial LE single level DATE OF EXAM: 11/01/2024 12:48 PM COMPARISONS: CT CAP January 01, 2024. Prior TRAVIS September 30, 2023 CLINICAL INDICATION: Male, 68 years old with history of E11.43 TYPE 2 DIABETES R09.89 POOR CIRCULATIO N; poor circulation TECHNIQUE: Systolic pressures were taken of the upper and lower extremity arteries with ankle-brachia l indices and toe brachial indices calculated bilaterally. History of: Smoker: No Hypertension: No Diabetic: Yes Hyperlipidemia: No TIA/CVA: No Previous Vascular Surgery: No CAD: No KS: No Vascular Ulcers: No Claudication: No Gangrene: No FINDINGS: Doppler Waveforms: Right: Biphasic Left: Biphasic Brachial Artery systolic pressure: Right: 138 Left: 134 Posterior Tibial artery systolic pressure: Right: Deferred due to DVT Left: Deferred due to DVT Dorsalis Pedis artery systolic pressure: Right: Deferred due to DVT Left: Deferred due to DVT Toe artery systolic pressure: Right: 129 Left: 112 Ankle-Brachial Indices: Right: Def. Left: Def. Toe Brachial Indices: Right: 0.93 Left: 0.81 (Normal > 0.6; Mild 0.35 - 0.59, Moderate 0.12 - 0.34, Severe <0.12) IMPRESSION: Normal bilateral toe brachial indices. [facility], , 11/01/2024 1:14 PM
== END | disposition home or self-care (01) ==
LOC: RADUSWWP 11:16
PROVIDERS: ATTEND Family Medicine
DX: E11.43 Type 2 diabetes mellitus with diabetic autonomic (poly)neuropathy (principal); R09.89 Other specified symptoms and signs involving the circulatory and respiratory systems; Z79.01 Long term (current) use of anticoagulants; Z86.718 Personal history of other venous thrombosis and embolism
CPT/HCPCS: 93922; 93970

== ENCOUNTER → 2025-01-06 | Outpatient (CLI) | payer MEDICARE, OTHER ==
[2025-01-06 12:47] LABS: African American GFR (CKD) 86 (>60 ml/min/1.73 sqM); Blood Urea Nitrogen 26 mg/dL (9-20); Non-African American GFR(CKD) 75 (>60 ml/min/1.73 sqM)
--- NOTE | 2025-01-06 14:05 | CT ---
EXAMINATION TYPE: CT abdomen pelvis w con CT DLP: 1081.7 mGycm, Automated exposure control for dose reduction was used. 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 Coronal and sagittal reformats were performed. FINDINGS: LOWER CHEST: Posterior dependent subsegmental atelectasis and/or scarring is noted. ABDOMEN LIVER: Unremarkable. GALLBLADDER AND BILE DUCTS: Layering increased densities within the lumen consistent with gallstones are present. Mildly distended gallbladder. No intrahepatic biliary ductal dilatation. Mild extra hepa tic biliary dilatation dilatation with the common bile duct measuring up to 11 mm at the pancreatic h ead. PANCREAS: Unremarkable. SPLEEN: Enlarged measuring 16.0 cm. Unchanged. ADRENAL GLANDS: Unremarkable. KIDNEYS AND URETERS: No evidence of hydronephrosis. No right renal calculi. Nonobstructing left renal 4 mm calculus. The kidneys enhance symmetrically. Contrast is demonstrated within both collecting sy stems on the delayed phase. PELVIS BLADDER: Similar mild circumferential wall thickening is unchanged. REPRODUCTIVE: Coarse calcifications of the prostate gland are identified. ABDOMEN & PELVIS STOMACH AND BOWEL: Stomach and duodenum are unremarkable. Enteric contrast reaches the transverse col on. Postsurgical from previous resection and re-anastomosis at the rectosigmoid junction. No evidence of bowel obstruction. PERITONEUM/RETROPERITONEUM: No evidence of pneumoperitoneum or free fluid. Similar prominent presacra l soft tissue thickening measuring up to 2.3 cm which is relatively unchanged. VASCULATURE: Mild atherosclerotic calcifications are present throughout the abdominal aorta and its b ranches. No evidence of aortic aneurysm. MUSCULOSKELETAL: No acute osseous abnormalities. No aggressive osseous lesion. Mild to moderate multi level degenerative disc disease which is most pronounced at L4-L5. LYMPH NODES: No enlarged lymph nodes greater than 1 cm short axis. SOFT TISSUE/ABDOMINAL WALL: Tiny fat filled umbilical hernia. Similar focal scarring within the right ventral abdominal wall subcutaneous tissues at the level of the umbilicus. IMPRESSION: 1. Stable postsurgical changes in the pelvis including presacral soft tissue thickening in rectosigm oid reanastomosis. No lymphadenopathy. No evidence for recurrent or metastatic disease. 2. Stable splenomegaly. 3. Cholelithiasis with mild common bile duct dilatation. Correlation with biliary labs is recommended with consideration for MRCP/ERCP as clinically indicated. 4. Nonobstructing left renal calculus. [facility], , 01/06/2025 2:03 PM
== END | disposition home or self-care (01) ==
LOC: RADCTMAIN 11:11
PROVIDERS: ATTEND Internal Medicine Hematology & Oncology
DX: Z03.89 Encounter for observation for other suspected diseases and conditions ruled out (principal); C19 Malignant neoplasm of rectosigmoid junction; N20.0 Calculus of kidney; K80.20 Calculus of gallbladder without cholecystitis without obstruction; R16.1 Splenomegaly, not elsewhere classified; K83.8 Other specified diseases of biliary tract; Z98.890 Other specified postprocedural states
CPT/HCPCS: 82565; 84520; 74177; 36415; Q9967

== ENCOUNTER → 2025-01-18 | Outpatient (CLI) | payer MEDICARE, OTHER ==
[2025-01-18 16:11] LABS: ALT 35 U/L (10-49); AST 28 U/L (14-35); Albumin 4.5 g/dL (3.8-4.9); Albumin/Globulin Ratio 2.25 Ratio (1.60-3.17); Alkaline Phosphatase 57 U/L (41-126); BUN/Creat Ratio 19.45 Ratio (12.00-20.00); Blood Urea Nitrogen 21.4 mg/dL (9.0-27.0); Carbon Dioxide 25.9 mmol/L (21.6-31.8); Chloride 104 mmol/L (96-109); Chol/HDL Ratio 6.75 Ratio; Glucose 163 mg/dL (70-110); LDL Cholesterol,Calculated 159.7 mg/dL (0.0-131.0); Potassium 4.4 mmol/L (3.5-5.5); Sodium 139 mmol/L (135-145); Total Bilirubin 1.1 mg/dL (0.3-1.2); Total Protein 6.5 g/dL (6.2-8.2)
== END | disposition home or self-care (01) ==
LOC: LABWHC1 08:53
DX: E11.59 Type 2 diabetes mellitus with other circulatory complications (principal); E78.5 Hyperlipidemia, unspecified
CPT/HCPCS: 36415; 80053; 80061; 82043; 82570